=== PATIENT | male | born 1945 | race Caucasian/White ===

== ENCOUNTER 2019-12-28 16:04 | Emergency (ER) | payer BC ==
[2019-12-28 17:59] LABS: Protime INR 0.91
[2019-12-28 18:00] LABS: Absolute Lymphocytes (CBC) 0.9 K/uL (0.7-4.9); Basophils % 0.6 % (0-1.3); Hematocrit 30.5 % (39.6-49.0); Lymphocytes % 14.8 % (15.3-44.8); MPV 8.6 fL (7.6-11.3); RBC Red Blood Cell Count 3.19 M/uL (4.33-5.43)
[2019-12-28 18:26] LABS: Potassium 4.4 mmol/L (3.5-5.1); Uric Acid 5.2 mg/dL (3.5-7.2)
--- NOTE | 2019-12-28 18:34 | EDPHYS ---
Physician Documentation [facility] Name: Kareem Correa Age: 74 yrs Sex: Male : 1945 Arrival Date: 12/28/2019 Time: 16:07 Bed 6 Private MD: Vincent Cleveland ED Physician Ren Cochran HPI: 12/27 16:45 This 74 yrs old Male presents to ER via Ambulatory with complaints of Knee cp swelling. 16:45 The patient presents with pain, that is acute, swelling, tenderness. cp 16:45 The complaints affect the right knee. Onset: The symptoms/episode began/occurred 5 cp day(s) ago. Associated signs and symptoms: Pertinent negatives calf tenderness, fever. The patient has been recently seen by a physician: the patient's primary care provider, earlier today, with similar presenting complaints, and was sent to the [facility] Emergency Department for further evaluation, due to concern for septic right knee joint. Given IM injection of Rocephin SEISMIC PROSPECTING OBSERVER. Historical: - Allergies: 16:16 No Known Allergies; ll1 - PMHx: 16:16 Hypertension; Diabetes - NIDDM; ll1 - PSHx: 16:16 heart bypass; ll1 - Immunization history:: Flu vaccine is up to date. - Social history:: Smoking status: Patient denies any tobacco usage or history of. ROS: 16:50 Constitutional: Negative for body aches, chills, fever. cp 16:50 Eyes: Negative for injury, pain, redness, and discharge. cp 16:50 ENT: Negative for ear pain, sore throat, difficulty swallowing, difficulty handling secretions. 16:50 Cardiovascular: Negative for chest pain. 16:50 Respiratory: Negative for cough, shortness of breath. 16:50 Abdomen/GI: Negative for abdominal pain. 16:50 Back: Negative for pain at rest, pain with movement. 16:50 MS/extremity: Positive for erythema, pain, swelling, tenderness, of the anterior aspect right knee, Negative for injury or acute deformity, decreased range of motion, paresthesias. 16:50 Skin: Negative for rash. 16:50 All other systems are negative. Exam: 16:55 Constitutional: The patient appears in no acute distress, alert, awake, non-toxic, well cp developed, well nourished. 16:55 Head/Face: Normocephalic, atraumatic. cp 16:55 Eyes: Periorbital structures: appear normal, Conjunctiva: normal, no exudate, no injection, Lids and lashes: appear normal, bilaterally. 16:55 ENT: External ear(s): are unremarkable, Nose: is normal, Mouth: Lips: moist, Oral mucosa: moist, Posterior pharynx: Airway: no evidence of obstruction, patent. 16:55 Chest/axilla: Inspection: normal. 16:55 Cardiovascular: Rate: normal, Edema: is not appreciated, JVD: is not appreciated. 16:55 Respiratory: the patient does not display signs of respiratory distress, Respirations: normal. 16:55 Musculoskeletal/extremity: ROM: full active range of motion, in the right knee, Weight bearing: able to fully bear weight, without difficulty. 16:55 Skin: erythematous, warm to touch, intact overlying skin of right anterior knee. No circumferential erythema or swelling noted. 16:55 Neuro: Orientation: to person, place \T\ time. Mentation: is normal. Vital Signs: 16:14 BP 124 / 60; Pulse 78; Resp 16; Temp 98.4; Pulse Ox 100% ; Weight 83.91 kg; Height 6 ll1 ft. 2 in. (187.96 cm); Pain 6/10; 18:13 BP 118 / 62; Pulse 71; Resp 18; Temp 97.9; Pulse Ox 98% on R/A; ph 16:14 Body Mass Index 23.75 (83.91 kg, 187.96 cm) ll1 MDM: 16:31 Patient medically screened. cp 18:30 Data reviewed: vital signs, nurses notes, lab test result(s), radiologic studies, plain cp films. Test interpretation: by ED physician or midlevel provider: xrays of right knee negative for fracture. ED course: VSS. Discussed results of labs and xrays. Low suspicion for septic joint at this time. Patient observed ambulating in ED w/o complaints and non-toxic appearance. Will discharge with RXs for oral antibiotics and referral to ortho. 12/27 16:38 Order name: CBC with Diff; Complete Time: 18:20 cp 12/27 18:20 Interpretation: Normal except: RBC 3.19; HGB 10.5; HCT 30.5; LYM% 14.8. cp 12/27 16:38 Order name: BMP; Complete Time: 18:26 cp 12/27 18:27 Interpretation: Normal except: NA 134; BUN 34; CRE 1.37; GFR 51. cp 12/27 16:38 Order name: PT-INR; Complete Time: 18:20 cp 12/27 16:38 Order name: ESR; Complete Time: 18:20 cp 12/27 18:20 Interpretation: Abnormal: SED 61. cp 12/27 16:38 Order name: CRP; Complete Time: 18:26 cp 12/27 18:27 Interpretation: Abnormal: C-REACTIVE PROT 65.00. cp 12/27 16:38 Order name: Uric Acid; Complete Time: 18:26 cp 12/27 16:38 Order name: XRAY Knee RIGHT 3 view cp 12/27 16:38 Order name: IV; Complete Time: 17:35 cp 12/27 16:50 Order name: Blood Culture Adult (2) cp Administered Medications: 17:50 Not Given (Pt recieved Rocephin shot at PCP): Rocephin - (cefTRIAXone) 1 grams IVPB ph once over 30 mins; (mix in 50 mL NS) 18:46 Drug: Doxycycline 100 mg Route: PO; ph 18:46 Follow up: Response: No adverse reaction; Medication administered at discharge. ph 18:46 Drug: Bactrim (160 mg-800 mg (DS) 1 tablet Route: PO; ph 18:46 Follow up: Response: No adverse reaction; Medication administered at discharge. ph Disposition: 18:50 Co-signature as Attending Physician, Ren Cochran MD. rn Disposition: 12/28/19 18:34 Discharged to Home. Impression: Other bursitis of knee, right knee - pre-patella. - Condition is Stable. - Discharge Instructions: Bursitis. - Prescriptions for Doxycycline Hyclate 100 mg Oral Tablet - take 1 tablet by ORAL route every 12 hours; 20 tablet. Bactrim DS 800- 160 mg Oral Tablet - take 1 tablet by ORAL route every 12 hours for 10 days; 20 tablet. Ibuprofen 800 mg Oral Tablet - take 1 tablet by ORAL route every 8 hours As needed take with food; 30 tablet. - Medication Reconciliation Form, Thank You Letter, Antibiotic Education, Prescription Opioid Use form. - Follow up: Michael Bailey MD; When: 1 - 2 days; Reason: Recheck today's complaints. - Problem is new. - Symptoms have improved. Signatures: Dispatcher [employer] EDRen Mills MD MD rn Hall, Patricia, RN RN ph Keanu Ronquillo PA PA cp Lewis, Lynsay RN RN ll1 Corrections: (The following items were deleted from the chart) 18:20 18:20 Normal except: RBC 3.19; HGB 10.5; HCT 30.5. cp cp 18:47 18:34 12/28/2019 18:34 Discharged to Home. Impression: Other bursitis of knee, right ph knee - pre-patella. Condition is Stable. Forms are Medication Reconciliation Form, Thank You Letter, Antibiotic Education, Prescription Opioid Use. Follow up: Michael Bailey; When: 1 - 2 days; Reason: Recheck today's complaints. Problem is new. Symptoms have improved. cp
--- NOTE | 2019-12-28 18:34 | ER ---
Nurse's Notes [facility] Name: Kareem Correa Age: 74 yrs Sex: Male : 1945 Arrival Date: 12/28/2019 Time: 16:07 Bed 6 Private MD: Vincent Cleveland Diagnosis: Other bursitis of knee, right [id number] Presentation: 12/27 16:14 Chief complaint: Patient states: Right knee redness, pain, and swelling for 5 days. No ll1 fever at home. Sent by Dr. Cleveland's HVAC DESIGN ENGINEER. Coronavirus screen: Client denies travel out of the [place] in the last 14 days. At this time, the client does not indicate any symptoms associated with coronavirus-19. Ebola Screen: Patient denies travel to an Ebola-affected area in the 21 days before illness onset. Initial Sepsis Screen: Does the patient meet any 2 criteria? No. Patient's initial sepsis screen is negative. Risk Assessment: Do you want to hurt yourself or someone else? Patient reports no desire to harm self or others. Onset of symptoms was December 23, 2019. 16:14 Method Of Arrival: Ambulatory ll1 16:14 Acuity: DAVIDA 3 ll1 17:37 Initial Sepsis Screen: Does the patient have a suspected source of infection? Yes: Bone ph or joint infection. Historical: - Allergies: 16:16 No Known Allergies; ll1 - PMHx: 16:16 Hypertension; Diabetes - NIDDM; ll1 - PSHx: 16:16 heart bypass; ll1 - Immunization history:: Flu vaccine is up to date. - Social history:: Smoking status: Patient denies any tobacco usage or history of. Screenin:37 Abuse screen: Denies threats or abuse. Denies injuries from another. Nutritional ph screening: No deficits noted. Tuberculosis screening: No symptoms or risk factors identified. Fall Risk None identified. Assessment: 17:36 General: Appears in no apparent distress. comfortable, slender, well groomed, Behavior ph is calm, cooperative, appropriate for age, Denies fever, feeling ill. Pain: Complains of pain in right knee. Neuro: Level of Consciousness is awake, alert, obeys commands, Oriented to person, place, time, situation. Cardiovascular: Capillary refill < 3 seconds in bilateral fingers. Respiratory: Airway is patent Respiratory effort is even, unlabored, Respiratory pattern is regular, symmetrical. GI: No signs and/or symptoms were reported involving the gastrointestinal system. Derm: Skin is intact, is healthy with good turgor, Skin is pink, warm \T\ dry. Musculoskeletal: Circulation, motion, and sensation intact. Range of motion: intact in all extremities, Swelling present in right knee. 18:47 Reassessment: Patient appears in no apparent distress at this time. Patient and/or ph family updated on plan of care and expected duration. Pain level reassessed. Patient is alert, oriented x 3, equal unlabored respirations, skin warm/dry/pink. Vital Signs: 16:14 BP 124 / 60; Pulse 78; Resp 16; Temp 98.4; Pulse Ox 100% ; Weight 83.91 kg; Height 6 ll1 ft. 2 in. (187.96 cm); Pain 6/10; 18:13 BP 118 / 62; Pulse 71; Resp 18; Temp 97.9; Pulse Ox 98% on R/A; ph 16:14 Body Mass Index 23.75 (83.91 kg, 187.96 cm) ll1 ED Course: 16:07 Patient arrived in ED. mr 16:08 Vincent Cleveland MD is Private Physician. mr 16:15 Triage completed. ll1 16:16 Arm band placed on Patient placed. ll1 16:28 Keanu Ronquillo PA is PHCP. cp 16:28 Ren Cochran MD is Attending Physician. cp 16:31 Dorina Arteaga, [place] is Primary Nurse. ph 17:30 Initial lab(s) drawn, by me, sent to lab. First set of blood cultures drawn by me. ph 17:35 Inserted saline lock: 20 gauge in right antecubital area, using aseptic technique. ph Blood collected. 17:39 Patient has correct armband on for positive identification. Bed in low position. Call ph light in reach. Side rails up X 1. Pulse ox on. NIBP on. Door closed. Noise minimized. Warm blanket given. 17:49 XRAY Knee RIGHT 3 view In Process Unspecified. EDMS 18:32 Michael Bailey MD is Referral Physician. cp 18:47 No provider procedures requiring assistance completed. IV discontinued, intact, ph bleeding controlled, No redness/swelling at site. Pressure dressing applied. Administered Medications: 17:50 Not Given (Pt recieved Rocephin shot at PCP): Rocephin - (cefTRIAXone) 1 grams IVPB ph once over 30 mins; (mix in 50 mL NS) 18:46 Drug: Doxycycline 100 mg Route: PO; ph 18:46 Follow up: Response: No adverse reaction; Medication administered at discharge. ph 18:46 Drug: Bactrim (160 mg-800 mg (DS) 1 tablet Route: PO; ph 18:46 Follow up: Response: No adverse reaction; Medication administered at discharge. ph Outcome: 18:34 Discharge ordered by MD. cp 18:47 Discharged to home ambulatory, with significant other. ph 18:47 Condition: good 18:47 Discharge instructions given to patient, significant other, Instructed on discharge instructions, follow up and referral plans. medication usage, Demonstrated understanding of instructions, follow-up care, medications, Prescriptions given X 3. 18:47 Patient left the ED. ph Signatures: Dispatcher [employer] Allison Vines Patricia RN RN ph Keanu Ronquillo PA PA cp Lewis, Lynsay, RN RN ll1
[2019-12-28] MEDS ORDERED: SMZ./TMP. 800/160 MG TABLET ONE (18:53)
[2019-12-28] MEDS ORDERED: DOXYCYCLINE 100 MG CAP PO ONE (18:53)
--- NOTE | 2019-12-28 18:53 | RAD REPORT ---
EXAM DESCRIPTION: RAD - Knee Right 3 View - 12/28/2019 5:48 pm CLINICAL HISTORY: Pain;Swelling COMPARISON: No comparisons FINDINGS: Mild arthritic changes are present. No fracture or dislocation. Trace suprapatellar joint effusion. Prominent soft tissue swelling is seen anterior to the patella and patellar tendon. IMPRESSION: Prominent soft tissue swelling anterior to the patella and patellar tendon.
[2019-12-28 20:26] VITALS: BP 118/62; TEMP 97.9; O2SAT 98
== END 2019-12-28 18:47 | disposition home or self-care (01) ==
LOC: ER 16:04
DX: M71.561 Other bursitis, not elsewhere classified, right knee (principal); I10 Essential (primary) hypertension; Z95.1 Presence of aortocoronary bypass graft
CPT/HCPCS: 36415; 80048; 84550; 85025; 85610; 85652; 86140; 87040; 99284

== ENCOUNTER 2024-10-29 11:00 | Day surgery (SDC) | payer BC ==
[2024-10-26 14:15] LABS: Absolute Lymphocytes (CBC) 1.0 K/uL (0.7-4.9); Hematocrit 29.5 % (39.6-49.0); Hemoglobin 10.4 g/dL (13.6-17.9); MCH 31.4 pg (27.0-35.0); MCHC 35.3 g/dL (32.0-36.0); MCV 88.9 fL (80-100); MPV 7.3 fL (7.6-11.3); Nucleated RBC Absolute Count 0.0 (0-0); Nucleated Red Blood Cells % 0.1 % (0-0); RBC Red Blood Cell Count 3.31 M/uL (4.33-5.43); White Blood Count 5.80 thou/uL (4.3-10.9)
[2024-10-26 14:24] LABS: PT Prothrombin Time 12.2 SECONDS (10-13.0); PTT, Activated Partial Thromb 29.7 SECONDS (27.2-37.4); Protime INR 1.08
[2024-10-26 14:31] LABS: Anion Gap 8.4 mEq/L (5.0-15.0); BUN Blood Urea Nitrogen 24.0 mg/dL (7-18); Glucose Level 113.0 mg/dL (74-106); Potassium 4.4 mEq/L (3.5-5.1)
--- NOTE | 2024-10-26 14:48 | RAD REPORT ---
EXAM: Chest Pa And Lat (2 Views) HISTORY: 79 years Male Pre-op pending heart catheterization COMPARISON: 12/14/2016 FINDINGS: LUNGS/PLEURA: The lungs are clear. No pleural effusions or pneumothorax. No pulmonary edema. CARDIAC/MEDIASTINUM: The cardiac silhouette is within normal limits. UPPER ABDOMEN: No significant abnormality. BONES: Sternotomy. No acute abnormality. LINES/TUBES/OTHER: N/A IMPRESSION: No evidence of acute cardiopulmonary disease.
[2024-10-29] MEDS ORDERED: NA CHLORIDE 0.9% 500 ML ONE (11:14)
[2024-10-29] MEDS ORDERED: VERAPAMIL HCL 10 MG/4 ML VIAL IV ONE (11:56)
[2024-10-29] MEDS ORDERED: CLOPIDOGREL 75 MG TABLET ONE (11:56)
[2024-10-29] MEDS ORDERED: HEPA 1000U/500MLS 2,000 UNIT/1,000 ML BAG IV ONE (11:56)
[2024-10-29] MEDS ORDERED: ATROPINE SULF 1 MG/10 ML SYR IV ONE (11:56)
[2024-10-29] MEDS ORDERED: LIDOCAINE 1% 20 ML MDV ONE (11:56)
[2024-10-29] MEDS ORDERED: HEPARIN 10,000 UNIT/10 ML VIAL IV ONE (11:56)
[2024-10-29] MEDS ORDERED: HEPARIN 5000 UNIT/ML 1 ML VIAL ONE (11:57)
[2024-10-29] MEDS ORDERED: TICAGRELOR 90 MG TABLET PO ONE (11:57)
[2024-10-29] MEDS ORDERED: ASPIRIN 325 MG TAB ONE (11:57)
[2024-10-29] MEDS ORDERED: MIDAZOLAM HCL 2 MG/2 ML INJ ONE (12:18)
[2024-10-29] MEDS ORDERED: FENTANYL CITR 100 MCG/2 ML ONE (12:18)
[2024-10-29 15:28] VITALS: BP 144/63; O2SAT 100
--- NOTE | 2024-11-05 16:46 | OP ---
Date of Procedure: 10/29/2024 Surgeon: GAL RIVERA Procedures Performed: Selective coronary angiogram with bypass graft study. Indication: Chest pain with abnormal stress test. Access: Right common femoral artery 6[place] closed with 6[place] Mynx closure device. Complications: None. Bleeding: Less than 50 mL. Total Sedation Time: 45 minutes, used fentanyl and Versed. Description Of Procedure: After risks, benefits, and alternatives were explained, the patient agreed to procedure and signed informed consent. The patient was brought into cardiac catheterization [facility], prepped and draped in sterile fashion. Then, I accessed right common femoral artery using mi cropuncture kit, ultrasound guidance, and fluoroscopy, placed a 6[place] Petros sheath and took a 6 -[place] JL4 catheter into the aortic root over a J-wire, engaged the left main, took standard views, and then exchanged for 6-[place] JR4 catheter, engaged the RCA, took standard views, and then the JR4 catheter was used to engage the MALLOY and took standard views and then engaged the COURTNEY also and took standard views and then removed the catheter and the sheath and used a 6-[place] Mynx closure device f or closure with good hemostasis. Findings: 1. Left main; 70% stenosed diffusely. 2. LAD; proximal 100%, PROSPECT MANAGER. 3. 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 4. RCA; proximal PROSPECT MANAGER 100%. Bypass Graft Study: 1. Widely patent MALLOY to LAD. 2. Widely patent COURTNEY to LAD. 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 Recommendation: Medical management and repeat the stress test on him in 1 year. SR/MODL Voice ID: [id number] Report ID: [id number]
== END 2024-10-29 15:04 | disposition home or self-care (01) ==
LOC: CCL 11:00
PROVIDERS: ATTEND Internal Medicine
DX: I25.110 Atherosclerotic heart disease of native coronary artery with unstable angina pectoris (principal); I25.82 Chronic total occlusion of coronary artery; I25.41 Coronary artery aneurysm; I35.0 Nonrheumatic aortic (valve) stenosis; I70.223 Atherosclerosis of native arteries of extremities with rest pain, bilateral legs; I10 Essential (primary) hypertension; E78.2 Mixed hyperlipidemia; E11.9 Type 2 diabetes mellitus without complications; Z87.891 Personal history of nicotine dependence
CPT/HCPCS: 93005; 85025; 80048; 36415; 85610; 82947; 85730; 71046; 93455; 76937; C1893; C1887; J2003; J2250; J3010; J1644; J7040; C1760; 93454; 99152; 99153; J0461